=== PATIENT | male | born 1950 | race Caucasian/White ===

== ENCOUNTER 2017-01-29 10:56 | Day surgery (SDC) | payer OTHER ==
[~2017-01-29 10:56] MED LIST: AMLODIPINE BESYL5 MG PO; ASPIRIN81 M1 PO; CALCIUM + VITA1 EAC4 PO; COREG25 M1 PO; FISH OIL 1,0001 EAC8 PO; GARLIC1000 M1 PO; GLUCOPHAGE500 M3 PO; HYDROCHLOROTHIA25 M1 PO; KLOR-CON M2020 ME1 PO; LOVAZA1 GM/CAP PO; MULTIPLE VITAM1 EAC3 PO; NAPROSYN500 M1 PO; OMEPRAZOLE20 M4 PO; PRINIVIL20 M1 PO; SYNTHROID150 MC1 PO; VITAMIN C500 M3 PO; VITAMIN D31000 UNI3 PO
[2017-01-30] MEDS ORDERED: PERCOCET 5-3251 EACH PO (11:58)
[2017-01-30] MEDS ORDERED: CELEBREX200 M1 PO (11:59)
[2017-01-30] MEDS ORDERED: ASPIRIN325 M3 PO (12:00)
== END 2017-01-30 14:39 ==
LOC: SRG 10:56 → SHSB 11:04 → ORE 14:00 → PACU 15:51 → 5EB 17:40
PROC: 0LQ24ZZ Repair Left Shoulder Tendon, Percutaneous Endoscopic Approach (ICD-10-PCS; principal; 2017-01-29)
PROC: 0RNK4ZZ Release Left Shoulder Joint, Percutaneous Endoscopic Approach (ICD-10-PCS; 2017-01-29)
PROC: 0PBB4ZZ Excision of Left Clavicle, Percutaneous Endoscopic Approach (ICD-10-PCS; 2017-01-29)
PROC: 0MM24ZZ Reattachment of Left Shoulder Bursa and Ligament, Percutaneous Endoscopic Approach (ICD-10-PCS; 2017-01-29)
DX: M75.112 Incomplete rotator cuff tear or rupture of left shoulder, not specified as traumatic (principal); S43.432A Superior glenoid labrum lesion of left shoulder, initial encounter; M75.42 Impingement syndrome of left shoulder; M19.012 Primary osteoarthritis, left shoulder; I10 Essential (primary) hypertension; E66.01 Morbid (severe) obesity due to excess calories; E78.5 Hyperlipidemia, unspecified; G40.909 Epilepsy, unspecified, not intractable, without status epilepticus; E11.9 Type 2 diabetes mellitus without complications; E03.9 Hypothyroidism, unspecified; J44.9 Chronic obstructive pulmonary disease, unspecified; K21.9 Gastro-esophageal reflux disease without esophagitis; Z79.1 Long term (current) use of non-steroidal anti-inflammatories (NSAID); Z79.82 Long term (current) use of aspirin; Z79.84 Long term (current) use of oral hypoglycemic drugs; Z79.899 Other long term (current) drug therapy; Z88.5 Allergy status to narcotic agent; Z88.8 Allergy status to other drugs, medicaments and biological substances; Z90.49 Acquired absence of other specified parts of digestive tract; Z90.79 Acquired absence of other genital organ(s); Z98.41 Cataract extraction status, right eye; Z98.890 Other specified postprocedural states
CPT/HCPCS: C1713; G8978-GP-CI; G8979-GP-CI; G8980-GP-CI; J0171; J0690; J1170; J1885; J3010